=== PATIENT | male | born 1990 | race Caucasian/White ===

== ENCOUNTER 2018-10-31 20:29 | Emergency (ER) | payer OTHER ==
[~2018-10-31] VITALS: Ht 170.2 cm; Wt 64.0 kg
[2018-10-31] MEDS ORDERED: SODIUM CHLORIDE 0.9% 1,000 ML IV ONE (21:33)
[2018-10-31] MEDS ORDERED: ONDANSETRON HCL 4MG/2ML INJ IV STA (21:33)
[2018-10-31] MEDS ORDERED: DIATR MEGLU/DIATRIZOATE SOLN 30ML ONE (21:46)
[2018-10-31 23:03] VITALS: BP 123/85
== END 2018-10-31 23:04 | disposition left against medical advice (07) ==
LOC: ER 20:29 → CANBEDREQ 11-01 02:03
DX: F15.10 Other stimulant abuse, uncomplicated (principal); F17.200 Nicotine dependence, unspecified, uncomplicated; Z76.5 Malingerer [conscious simulation]
CPT/HCPCS: 71045; 74018; 93005; 99283; J7030; Q9963; Z7610